=== PATIENT | female | born 1990 | race Two or more races ===

== ENCOUNTER 2025-11-07 16:38 | Emergency (ER) | payer MEDICAID ==
[~2025-11-07] VITALS: Ht 167.6 cm; Wt 97.2 kg
[2025-11-07 16:39] VITALS: TEMP 98.6
--- NOTE | 2025-11-07 17:04 | RADIOLOGY REPORT ---
EXAM: DI CHEST,SINGLE VIEW HISTORY: cough bloody sputum TECHNIQUE: 1 view of the chest COMPARISON: None FINDINGS/IMPRESSION: LUNGS: No pleural effusion, consolidation, or pneumothorax. MEDIASTINUM: Unremarkable. BONES: No acute osseous abnormality. OTHER: None.
--- NOTE | 2025-11-07 17:46 | Physician Documentation ---
History of Present Illness ~ Chief Complaint: Cough Stated Complaint: COUGH Time Seen by MD: 17:43 HPI This is a 35-year-old female who presents to the emergency department reporting 10 days of cough. Smoker. Has noted streaks of blood in the sputum over the last couple of days. Denies chills or fever, chest pain or shortness of breath. Medication Reconciliation Allergies: Coded Allergies: naproxen (Unverified Allergy, Mild, rash, 11/07/25) Scheduled Methylprednisolone (Medrol Dosepak), 0 PO UD Scheduled PRN Albuterol Sulfate (Ventolin Hfa), 2 PUFFS INH Q4HPRN PRN for wheezing Review of Systems ROS As stated above in the HPI, otherwise all systems are reviewed and negative. Physical Exam Vital Signs: Temperature: 98.6, Source: Oral, Heart Rate: 102, Respiratory Rate: 16, BP: 116/76, Pulse Oximetry: 100, Weight: 97.200 Oxygen Flow Rate: 0 Physical Exam General: Alert, no apparent distress. HEENT: PERRL, EOMI, no injection, moist mucous membranes. Neck: Full range of motion. Respiratory: Moderate wheezing, no respiratory distress. Chest: No accessory muscle use. Cardiovascular: Regular rate and rhythm, no murmurs. Gastrointestinal: Soft, nontender, nondistended. Bowels sounds present. Extremities: Normal range of motion, no deformity. Neurologic: Oriented x4. Psychiatric: Normal mood and affect. Skin: Normal color, warm and dry. No edema, no ecchymosis. Progress Results/Orders Results/Orders Orders - LEISA CHACKO NP Covid19 Binax Poc Result Entry (11/07/25 17:50) Completed Orders - LEISA CHACKO NP Influenza Type A&B Rapid Test (11/07/25 17:50) Vital Signs 11/07/25 11/07/25 11/07/25 16:39 18:08 18:09 Temp 98.6 Pulse 102 103 Resp 16 17 17 B/P (MAP) 116/76 149/92 (111) Pulse Ox 100 99 O2 Flow Rate 0 Laboratory Tests Test 11/07/25 17:54 Influenza Type A Antigen Negative Influenza Type B Antigen Negative SARS-CoV-2 Antigen (Rapid) Negative EKG/XRAY/CT/US/VASC/MRI Chest X-Ray : Additional Comments [address] [address] DIAGNOSTIC RADIOLOGY Patient: IMER COPELAND Medical Record: [id number] [facility] : 1990, Age: 35 Sex: Female Location: ER Patient Status: [facility] ER Service Date/Time: 11/07/251647 Ordering Physician: SOHEILA FERRARA MD Exam: CHEST,SINGLE VIEW EXAM: DI CHEST,SINGLE VIEW HISTORY: cough bloody sputum TECHNIQUE: 1 view of the chest COMPARISON: None FINDINGS/IMPRESSION: LUNGS: No pleural effusion, consolidation, or pneumothorax. MEDIASTINUM: Unremarkable. BONES: No acute osseous abnormality. OTHER: None. Electronically Signed by:IKER SADLER MD Date & Time: 11/07/251700 Dictated by: IKER SADLER MD Dictation date and time: 11/07/251645 Primary Care Provider: NO PRIMARY CARE PROVIDER cc: SOHEILA FERRARA MD ~ Medical Decision Making Additional information obtaine: N/A Findings no previous visits to this facility. Differential Dx:Considerations: Include: Allergic rhinitis, Influenza, Otitis media, Peritonsillar abscess, Pharyngitis-Diphtheria, Pharyngitis-Streptoccal, P haryngitis-Viral, Pneumonia, Pnuemonitis, Sinusitis, URI Departure Time of Disposition: 18:37 Disposition: 01 HOME / SELF CARE / HOMELESS Impression: Primary Impression: Acute bronchitis Condition: Stable Discharge Instructions: Bronchitis Additional Instructions: There was no pneumonia seen on your chest x-ray. You most likely have a viral process causing bronchitis. Consider smoking cessation. Use the provided inhaler and medications. Please follow up with your primary care provider within a week, return if worse. Referrals: NO PRIMARY CARE PROVIDER (PCP) Prescriptions Methylprednisolone (Medrol Dosepak) 4 Mg Tab.ds.pk 0 PO UD, #21 TAB 0 Refills take 6 Pills Day 1, 5 Pills Day 2, 4 Pills Day 3, 3 Pills Day 4, 2 Pills Day 5 and 1 pill Day 6 Prov: LEISA CHACKO NP 11/07/25 Albuterol Sulfate (Ventolin Hfa) 90 Mcg Hfa.aer.ad 2 PUFFS INH Q4HPRN PRN for wheezing for 30 Days, #18 GM 0 Refills Prov: LEISA CHACKO NP 11/07/25 Education Educated: Patient Educated regarding: diagnosis, treatment, prognosis, need for follow up Signature Scribe Signature: x Attestation: The note accurately reflects work and decisions made by me.Leisa Bowen NP 11/07/25 18:41 LEISA CHACKO NP Nov 07, 2025 17:46
[2025-11-07 18:08] VITALS: BP 149/92
[2025-11-07 18:23] LABS: INFLUENZA TYPE A ANTIGEN RAPID NEGATIVE (Negative); INFLUENZA TYPE B ANTIGEN RAPID NEGATIVE (Negative)
[2025-11-07] MEDS ORDERED: METH4TAB81 PO (18:38)
[2025-11-07] MEDS ORDERED: ALBU18HF2 INH (18:38)
[2025-11-07 18:58] VITALS: PULSE 85; RESP 14; O2SAT 98
== END 2025-11-07 19:02 | disposition home or self-care (01) ==
LOC: ER 16:39
DX: J20.9 Acute bronchitis, unspecified (principal); F17.200 Nicotine dependence, unspecified, uncomplicated; Z88.6 Allergy status to analgesic agent; Z20.822 Contact with and (suspected) exposure to COVID-19
CPT/HCPCS: 36415; 71045; 87804; 87811; 99284